=== PATIENT | female | born 1995 | race Two or more races ===

== ENCOUNTER 2018-08-02 15:17 | Emergency (ER) | payer MEDICAID ==
--- NOTE | 2018-08-02 15:26 | EDPHY ---
H & P Stated Complaint: R knee pain -Ski injury yesterday Time Seen by Provider: 08/02/18 15:24 - Personal History LMP (Females 10-55): 15-21 Days Ago - Medical/Surgical History Hx Asthma: No Hx Chronic Respiratory Disease: No Hx Diabetes: No Hx Cardiac Disease: No Hx Renal Disease: No Hx Cirrhosis: No Hx Alcoholism: No Hx HIV/AIDS: No Hx Splenectomy or Spleen Trauma: No Other PMH: denies - Social History Smoking Status: Never smoked Constitutional: Initial Vital Signs Temperature (C) 36.7 C 08/02/18 15:21 Heart Rate 88 08/02/18 15:21 Respiratory Rate 16 08/02/18 15:21 Blood Pressure 100/62 08/02/18 15:21 O2 Sat (%) 97 08/02/18 15:21 O2 Delivery Mode Room Air Allergies/Adverse Reactions: Penicillins Allergy (Verified 07/04/15 13:08) Home Medications: Medication Instructions Recorded Abilify 07/04/15 Hydrocodone/APAP 5/325 [[place] 1 - 2 each PO Q4-6PRN PRN #20 tab 08/02/18 5/325] Ibuprofen [Motrin] 800 mg PO Q8 #20 tab 08/02/18 Medical Decision Making - Diagnostics Imaging: Discussed imaging studies w/ wire stripping machine operator Radiologist, I viewed and interpreted images myself ED Course/Re-evaluation: CHIEF COMPLAINT: Right knee pain HISTORY OF PRESENT ILLNESS: 23-year-old female who was skiing yesterday she had a severe twisting injury of her right knee. It got worse and worse yesterday and swelled more more. Today she cannot bear weight or bend it. She denies any other symptoms. She is using crutches. REVIEW OF SYSTEMS: A comprehensive 10 system review of systems is otherwise negative aside from elements mentioned in the history of present illness and medical decision making. PHYSICAL EXAM: HR, BP, O2 Sat, RR. Temp noted General Appearance: Alert, well hydrated, appropriate, and non-toxic appearing. Head: Atraumatic without scalp tenderness or obvious injury Eyes: Pupils equal, round, reactive to light and accommodation, EOMI, no trauma , no injection. Ears: Clear bilaterally, no perforation, normal landmarks Nose: Atraumatic, no rhinorrhea, clear. Throat: There is no erythema or exudates, no lesions, normal tonsils, mucus membranes moist. Neck: Supple, 2+ carotid upstroke, nontender, no lymphadenopathy. Respiratory: No retractions, no distress, no wheezes, and no accessory muscle use. Lungs are clear to auscultation bilaterally. Cardiovascular: Regular rate and rhythm, no murmurs, rubs, or gallops. Bilateral carotid, radial, dorsalis pedis, and posterior tibial pulses intact. Good capillary refill all extremities. Gastrointestinal: Abdomen is soft, nontender, non-distended, no masses, no rebound, no guarding, no peritoneal signs. Musculoskeletal: Difficult to examine the right knee. It is very swollen and painful. Very little range of motion secondary to effusion and pain. Otherwise , Normal active ROM of all extremities, atraumatic. Neurological: Alert, appropriate, and interactive. The patient has normal DTRs and non-focal cranial nerves, motor, sensory, and cerebellar exam. Skin: No rashes, good turgor, no nodules on palpation. Past medical history: None Past surgical history: None Family history: Noncontributory Social history: Single, just graduated University, employed, from [place], does not abuse tobacco drugs or alcohol DIAGNOSTICS/PROCEDURES/CRITICAL CARE TIME: Right knee MRI: ACL tear, medial and lateral meniscus tear, posterior tibial plateau fracture. DIFFERENTIAL DIAGNOSIS: The differential diagnosis for the patient's knee injury included but was not limited to fracture, ligamentous injury, contusion, muscular strain, and meniscus injury. MEDICAL DECISION MAKING: This patient has an obvious internal derangement of the right knee. She has a considerable effusion. She is icing it. It has gotten worse since her injury yesterday. I have ordered MRI to elucidate the injury. 174: I spoke with the radiologist who reports that the patient has an ACL tear , medial and lateral meniscus tear, posterior tibial plateau fracture. 175: Reassessed patient and discussed imaging findings. She will be placed in a knee immobilizer and given crutches. I have also advised her to follow up with an orthopedic surgeon. Return precautions provided; patient is comfortable with this plan. Departure - Departure Disposition: Home, Routine, Self-Care Clinical Impression: Knee injury Qualifiers: Encounter type: initial encounter Laterality: right Qualified Code(s): S89.91XA - Unspecified injury of right lower leg, initial encounter Medial collateral ligament sprain of knee Qualifiers: Encounter type: initial encounter Laterality: right Qualified Code(s): S83.411A - Sprain of medial collateral ligament of right knee, initial encounter Knee LCL sprain Qualifiers: Encounter type: initial encounter Laterality: right Qualified Code(s): S83.421A - Sprain of lateral collateral ligament of right knee, initial encounter Meniscus, lateral, derangement Qualifiers: Laterality: right Qualified Code(s): M23.300 - Other meniscus derangements, unspecified lateral meniscus, right knee Meniscus, medial, derangement Qualifiers: Laterality: right Qualified Code(s): M23.303 - Other meniscus derangements, unspecified medial meniscus, right knee Tibial plateau fracture Qualifiers: Encounter type: initial encounter Fracture type: closed Laterality: right Qualified Code(s): S82.141A - Displaced bicondylar fracture of right tibia, initial encounter for closed fracture Instructions: Knee Pain (ED), Knee Immobilizer (ED) Additional Instructions: 1. Rest, ice, elevation. 2. Follow up with an orthopedic surgeon within one week. 3. Return to the emergency department for worsening pain, swelling, numbness, weakness or other concerns. 4. Wear splint at all times until reevaluation, but okay to shower without splint. 5. Use ibuprofen in addition to prescribed pain medication as directed for pain. Referrals: Javed Cuevas MD [Medical Doctor] - As per Instructions Prescriptions: Hydrocodone/APAP 5/325 [[place] 5/325] 1 - 2 each PO Q4-6PRN PRN #20 tab PRN Reason: Pain, Moderate Ibuprofen [Motrin] 800 mg PO Q8 #20 tab
[2018-08-02 18:09] VITALS: BP 116/81
== END 2018-08-02 18:11 | disposition home or self-care (01) ==
DX: S82.141A Displaced bicondylar fracture of right tibia, initial encounter for closed fracture (principal); S83.411A Sprain of medial collateral ligament of right knee, initial encounter; S83.421A Sprain of lateral collateral ligament of right knee, initial encounter; V00.328A Other snow-ski accident, initial encounter; Y93.23 Activity, snow (alpine) (downhill) skiing, snowboarding, sledding, tobogganing and snow tubing; Y92.828 Other wilderness area as the place of occurrence of the external cause
CPT/HCPCS: L1830

== ENCOUNTER 2018-08-12 11:05 | Day surgery (SDC) | payer MEDICAID ==
--- NOTE | 2018-08-12 09:38 | PDHPUP ---
History & Physical Update H&P update statement: This history and physical update is based on an assessment of the patient which was completed after admission or registration (within 24 hours), but prior to the surgery/procedure. H&P update: H&P reviewed & patient examined, no change in patient's condition since H&P completed
[2018-08-12] MEDS ORDERED: ceFAZolin 2 GM/DEXTROSE 100 ML IV ONE (11:40)
[2018-08-12] MEDS ORDERED: LIDOCAINE 1% 2 ML INJ ID PRN (11:41)
[2018-08-12] MEDS ORDERED: LR 1,000 ML IV ONE (11:41)
[2018-08-12] MEDS ORDERED: MIDAZOLAM 2 MG/2 ML VIAL IVP ONE (12:42)
--- NOTE | 2018-08-12 12:43 | PDANEPAE ---
ANE Past Medical History - Cardiovascular History Hx Hypertension: No Hx Arrhythmias: No Hx Chest Pain: No Hx Coronary Artery / Peripheral Vascular Disease: No Hx CHF / Valvular Disease: No Hx Palpitations: No - Pulmonary History Hx COPD: No Hx Asthma/Reactive Airway Disease: No Hx Recent Upper Respiratory Infection: No Hx Oxygen in Use at Home: No Hx Sleep Apnea: No Sleep Apnea Screening Result - Last Documented: Negative - Neurologic History Hx Cerebrovascular Accident: No Hx Seizures: Yes Hx Dementia: No Neurologic History Comment: seizure at 14 yo from overdose- suicide attempt, none since - Endocrine History Hx Diabetes: No - Renal History Hx Renal Disorders: No - Liver History Hx Hepatic Disorders: No - Neurological & Psychiatric Hx Hx Neurological and Psychiatric Disorders: Yes Neurological / Psychiatric History Comment: anxiety. depression - Cancer History Hx Cancer: No - Congenital Disorder History Hx Congenital Disorders: No - GI History Hx Gastrointestinal Disorders: No - Other Health History Other Health History: wears contacts/ glasses - Chronic Pain History Chronic Pain: No - Surgical History Prior Surgeries: wisdom teeth removed ANE Review of Systems Review of Systems: - Exercise capacity METS (RN): 6 METS ANE Patient History - Allergies Allergies/Adverse Reactions: Penicillins Allergy (Verified 08/11/18 15:57) possible hives- happened as young child - Home Medications Home Medications: Abilify 07/04/15 [Last Taken Unknown] Bcp 08/11/18 [Last Taken Unknown] CLONAZEPAM PRN 08/11/18 [Last Taken Unknown] Hydrocodone/APAP 5/325 [[place] 5/325] Q4-6PRN PRN 08/11/18 [Last Taken Unknown] - NPO status NPO Since - Liquids (Date): 08/12/18 NPO Since - Liquids (Time): 09:30 NPO Since - Solids (Date): 08/11/18 NPO Since - Solids (Time): 20:00 - Smoking Hx Smoking Status: Never smoked - Family Anes Hx Family Hx Anesthesia Complications: none ANE Labs/Vital Signs - Vital Signs Blood Pressure: 100/70 Heart Rate: 76 Respiratory Rate: 16 O2 Sat (%): 98 Height: 154.94 cm Weight: 49.895 kg ANE Physical Exam - Airway Neck exam: FROM Mallampati Score: Class 1 Mouth exam: normal dental/mouth exam - Pulmonary Pulmonary: no respiratory distress - Cardiovascular Cardiovascular: regular rate and rhythym - ASA Status ASA Status: I ANE Anesthesia Plan Anesthesia Plan: GA w LMA
[2018-08-12] MEDS ORDERED: DEXAMETHASONE 4 MG/ML VIAL ONE (12:48)
[2018-08-12] MEDS ORDERED: KETOROLAC 30 MG/1 ML SDV ONE (12:48)
[2018-08-12] MEDS ORDERED: PROPOFOL 200 MG/20 ML VIAL ONE (12:48)
[2018-08-12] MEDS ORDERED: fentaNYL 100 MCG/2 ML INJ ONE ×3 (12:48→15:17)
[2018-08-12] MEDS ORDERED: LIDOCAINE 2% 100 MG/5 ML SYR ONE (12:48)
[2018-08-12] MEDS ORDERED: BUPIVACAINE/EPI 0.5% 30 ML SDV ONE (12:50)
[2018-08-12] MEDS ORDERED: fentaNYL 100 MCG/2 ML INJ IVP PRN ×2 (13:05→14:15)
[2018-08-12] MEDS ORDERED: ALBUTEROL 3 ML DEYVIAL IH PRN ×2 (13:05→14:15)
[2018-08-12] MEDS ORDERED: MEPERIDINE 25 MG/0.5 ML AMP IVP PRN ×2 (13:05→14:15)
[2018-08-12] MEDS ORDERED: NALOXONE HCL 0.4 MG/ML INJ IVP PRN ×2 (13:05→14:15)
[2018-08-12] MEDS ORDERED: DIAZEPAM 10 MG/2 ML SYR IVP PRN ×2 (13:05→14:15)
[2018-08-12] MEDS ORDERED: HYDROmorphONE/DILAUDID 1 MG/ML INJ IVP PRN ×2 (13:05→14:15)
[2018-08-12] MEDS ORDERED: ONDANSETRON 4 MG/2 ML VIAL IVP PRN ×3 (13:05→15:04)
[2018-08-12] MEDS ORDERED: HYDROCODONE/APAP 5/325 TAB PO PRN ×2 (13:05→14:15)
[2018-08-12] MEDS ORDERED: ONDANSETRON DISINTEGRATING 4 MG TAB PO PRN (15:04)
[2018-08-12] MEDS ORDERED: OXYCODONE/APAP 5/325 TAB PO PRN (15:04)
--- NOTE | 2018-08-12 15:10 | POSTANESTH ---
Post Anesthetic Evaluation Cardiovascular Status: Similar to Pre-Op Cond Respiratory Status: Similar to Pre-op Cond. Level of Consciousness/Mental Status: Can Participate in Eval, Mildly Sleepy, Arousable Pain Control: Adequate, Prn Tx Ordered Nausea/Vomiting Control: Adequate, Prn Tx Ordered Complications Possibly Related to Anesthesia: None Noted
[2018-08-12] MEDS ORDERED: HYDROCODONE/APAP 5/325 TAB ONE (15:19)
[2018-08-12] MEDS ORDERED: ONDANSETRON 4 MG/2 ML VIAL ONE (15:59)
[2018-08-12 16:12] VITALS: BP 110/81
--- NOTE | 2018-08-12 22:33 | GOP ---
[f rep st] OPERATIVE REPORT DATE OF OPERATION: 08/12/2018 SURGEON: Javed Cuevas MD ACCESS REPRESENTATIVE: Ede Wray PA-C. ANESTHESIA: General. PREOPERATIVE DIAGNOSIS: 1. Right anterior cruciate ligament tear. 2. Rule out lateral meniscus tear. POSTOPERATIVE DIAGNOSIS: 1. Right anterior cruciate ligament tear. 2. Lateral meniscus tear (repairable). PROCEDURE PERFORMED: 1. Arthroscopic-assisted reconstruction, right anterior cruciate ligament, using 2-strand anterior t ibialis tendon allograft. 2. Arthroscopic repair, lateral meniscus tear. FINDINGS: DESCRIPTION OF PROCEDURE: Patient was taken to the operating room, administered general anesthesia, placed in the supine position. Her right lower extremity was positioned in a leg neil and prepped and draped in normal sterile fashion. Examination under anesthesia revealed instability at anterior drawer and Janet's. Positive pivot shift. Arthroscope was inserted through an anterolateral incision. Superolateral incision was made followed by insertion of the outflow cannula. Anterior and medial incisions were made followed by insertion of the hook probe. Systematic exploration of the joint was performed. FINDINGS: Patient had a complete tear of the ACL off the femur. The PCL was intact. The medial men iscus was probed and found to be intact. The lateral meniscus had a vertical cleft tear going throug h approximately 2/3's of the meniscus in the posterior third aspect. Our attention was directed to the ACL stump. This was debrided using a 4.0 resector shaver. The lat eral meniscus was then addressed. A repair was performed using a Man All-Inside meniscal repair. This was called the AIR system. A single suture was felt warranted as this was a partial thickness and only extended approximately 1 cm in width. The notchplasty was then performed with a 1/4-inch o steotome followed by the bur. The scope was then extracted. The graft was harvested through an ante romedial incision. It was carried through dermal and subcutaneous tissues. The sartorius expansion was split longitudinally in line with its fibers. The anterior tibialis tendon was prepared on the b ack table. This was an allograft. Sutures were passed through each end of the tendon. A 7 cm graft was selected. The insertion length was marked at 20 mm. The tibial tunnel was then drilled through our medial incision using the tunnel drill guide set at 55 degrees. A 9 mm tibial tunnel was drille d. The femoral tunnel was then drilled using the [employer] flexible drill system. The starting hole w as made with the awl. It was made 6 mm anterior to the notch at the [id number] position. We subse quently drilled this out through the lateral femoral condyle with the knee in a flexed position. Our tunnel length was measured at 35 mm. The tunnel depth was 20 mm. We then drilled out through the l ateral cortex with a 5 mm tunnel drill. The graft was passed through the loop of GFS suture system f rom Parcus. The insertion length was measured at 20 mm. The tunnel length was measured off the tip of the button at 35 mm. The leading sutures of the graft were passed through a passing stitch florinda t through the tibial and femoral tunnels. They were then pulled up into position. We visualized the button being flipped on a FluoroScan. The graft was then tensioned. The graft was pulled up into t he tunnel using the leading tensioning loop. We then tied the graft distally over a 6.5 cancellous s crew and washer. This was brought through a 3.5 drill hole and was tapped with a 6.5 tap. A 50 mm l ength screw and washer were utilized. The knee was put through flexion and extension arc of motion. There was no graft impingement. We felt that the knee was stable with Janet maneuver. Leading an d trailing sutures were removed. The sartorius expansion was closed with a 2-0 Vicryl suture followe d by closure of the subcutaneous tissue with a 2-0 Vicryl suture followed by closure of the dermis wi th 3-0 Ethilon. The knee was infiltrated with approximately 30 cc of 0.5% Marcaine solution. Steril e compression dressing was applied. The patient was placed into a hinged knee brace. She tolerated the procedure well and was transferred back to recovery in stable condition. No operative complicati ons. COMPLICATIONS: None. /[id number]/MODL
== END 2018-08-12 17:03 | disposition home or self-care (01) ==
LOC: FSGY 11:05
PROVIDERS: ATTEND Orthopaedic Surgery Sports Medicine
DX: S83.511A Sprain of anterior cruciate ligament of right knee, initial encounter (principal); S83.281A Other tear of lateral meniscus, current injury, right knee, initial encounter; V00.328A Other snow-ski accident, initial encounter; Y93.23 Activity, snow (alpine) (downhill) skiing, snowboarding, sledding, tobogganing and snow tubing; Y92.828 Other wilderness area as the place of occurrence of the external cause
CPT/HCPCS: C1713; C1762; J0690; J1100; J1885; J2001; J2250; J2405; J2704; J3010